=== PATIENT | female | born 1990 | race Caucasian/White ===

== ENCOUNTER 2022-01-10 08:35 | Outpatient (CLI) | payer OTHER, SELFPAY ==
--- NOTE | 2022-01-10 08:30 | ECG_ITS ---
Measurements Intervals [place] Rate: 93 P: 59 NM: 155 QRS: 40 QRSD: 86 T: 43 QT: 345 QTc: 429 Interpretive Statements SINUS RHYTHM MINOR RV CONDUCTION ABNORMALITY OTHERWISE NORMAL ECG NO PREVIOUS ECG AVAILABLE FOR COMPARISON Electronically Signed On 01-10-2022 14:24:09 CDT by Dimas Sawyer M.D.
[2022-01-10 09:28] LABS: Hematocrit 38.7 % (37.0-47.0); Hemoglobin 13.2 g/dL (12.0-15.0)
== END 2022-01-10 08:36 | disposition home or self-care (01) ==
LOC: ANHSURGERY 08:39
PROVIDERS: Anesthesiology; PCP Family Medicine; Visit Provider Surgery Plastic and Reconstructive Surgery
DX: Z41.1 Encounter for cosmetic surgery (principal)
CPT/HCPCS: 36415; 85014; 85018; 93005

== ENCOUNTER 2022-01-13 03:20 | Day surgery (SDC) | payer OTHER, SELFPAY ==
[2022-01-06 12:24] VITALS: BMI 26.6
--- NOTE | 2022-01-06 12:35 | PC.NURSE ---
Report to the Outpatient Waiting Room, entrance under the green pavilion located off [facility], at time 6:00 on date 01/13/22. OR Time: 7:30. - You and your visitor will be asked a series of questions to screen for COVID 19 for your protection. - A mask is required within the hospital. One visitor will be allowed to accompany the patient into the hospital. Patients visitor will be instructed to remain with patient at all times or leave the building. We will allow the visitor to come back to the postoperative area when patient is ready. Preoperative COVID Testing Requirements: No COVID Test needed if: (proof is required; if not received patient will have Rapid Test prior to entry) - Patient has received COVID Vaccine at least 14 days prior to procedure date or - Patient has positive COVID test result within last 90 days of surgery date. COVID Test needed if above criteria is not met Patients may have clear liquids (water, carbonated beverages, clear teas, apple juice) until 3 hours prior to surgery (4:30) with a maximum of 20 ounces. - No food from midnight until time of surgery Take the following medications with a SIP of water the morning of surgery: NONE Medications to discontinue per physician: VITAMINS/SUPPLEMENTS Date to take last dose: 01/09/22 Please no make-up, nail armenian, hairspray, perfume, deodorant, or body powder the day of surgery. No jewelry (including any body piercings) or valuables the day of surgery, leave them at home. Please take a shower or bath the night before, or the morning of, surgery with an antibacterial soap. Wear comfortable, loose fitting clothing. - Jewelry must be removed prior to entering the operating room. Rings and piercings that are not removed may be cut off. - The hospital will not accept responsibility for valuables. - Please leave all valuables, including medications, at home the day of surgery. If you are going home after surgery, a licensed lifter/driver must drive you home. - NO public transportation without another adult. - We recommend that an adult stay with you for 24 hours following discharge. - We also recommend that you do not drive, make important decision, drink alcoholic beverages, or take any drugs that were not prescribed by your health care provider for at least 24 hours after your discharge time. Follow any additional instructions given to you from your surgeon. Telephone instructions given to MARY ARENAS and asked if any additional questions and then verbalized understanding. Patient advised to call surgeon office or pre surgery nurse liaison [phone] if any additional questions.
[2022-01-13] VITALS (14 sets, daily range): BP systolic 95–124; BP diastolic 66–90; PULSE 55–92; RESP 12–16; TEMP 35.5–36.9; O2SAT 96–100
--- NOTE | 2022-01-13 06:29 | P.OP_ITS ---
Procedure Note - Detailed Date of Procedure 01/13/22 Pre-op Diagnosis unacceptable cosmetic appearance Post-op Diagnosis Same Procedure Performed [place] butt lift Surgeon Prince Avelar MD Anesthesia General Findings Total Lipoaspirate: 3000 cc Fat transfer: Right gluteal 550 cc Right lateral thigh 175cc Left gluteal 550 cc Left lateral thigh 175cc Description of Procedure Preoperatively the risks, benefits, alternatives were discussed in extensive d etail. I want her to be very realistic about the risks involved as well as expectations. She understands the technique we are going to utilize and understands there is still risk of associated with this procedure. This was outlined extensively before the procedure as I want her to be well informed. All questions were answered to her satisfaction. Consent obtained. She was marked in the preoperative holding area with her verification. I made sure we are in full agreement on her planned and harvest sites and her goals / volume. Was then taken to operating room placed supine on the operating room table. Anesthesia was provided by anesthesiology. A 360 degree prep was completed. She was draped in a standard sterile fashion. Surgical time-out was taken. Stab incisions were made with an 11 blade and I tumesced with a tumescent solution. I then proceeded with suction lipectomy based on S.A.F.E. technique. This was in multiple planes and passes using a 5 mm basket cannula based on preoperative planning, intraoperative observations, and rolling pinch which was in full agreement. Lipoma aspirate was in a gravity separation device in order for adequate time for separation of the adipose component. We did place in lateral decubitus positions to ensure contour with care taken to protect her during these position changes. Each of the port sites were closed using a 4-0 nylon. I then placed her prone. We re-prepped and draped in a standard sterile fashion. Stab incisions were made in for the remaining lipoaspirate. We waited for adequate time for hemostasis and completed our suction lipectomy as above The central adipose component was used. This was placed into 60 cc syringes which were passed through a luer lock to luer lock adapter. The lipoaspirate tubing and5 mm basket were utilized for fat injection. Care was taken during this to stay superficial following safeBBL principals. Adipose transfer was based on her preoperative planning and tissue compliance / capacity. Port sites were closed with 4-0 nylon. Dressings were placed. She was woken taken to the PACU without difficulty. All instrument sponge counts were correct at the end of the case. Estimated Blood Loss 75 Drains No Packing No Pathology None sent Complications No immediate complications Condition Stable Disposition PACU
[2022-01-13] MEDS: LACTATED RINGERS 1,000 ML 30 ML IV CONT ×2 (06:30→11:19)
[2022-01-13 06:38] LABS: Urine Cotinine NEGATIVE
--- NOTE | 2022-01-13 06:45 | WPDHPUPDATE1 ---
History and Physical Update Update Date/Time: 01/13/22 07:15 History and Physical has been reviewed, including an updated exam of the patient. There are NO changes in the patient's condition. Preoperatively the risks, benefits, alternatives were discussed in extensive detail. I want her to be very realistic about the risks involved as well as expectations. She understands the technique we are going to utilize and understands there is still risk of associated with this procedure. Literature rates were reviewed. This was outlined extensively before the procedure today and at every visit previously as I want her to be well informed of her choice. We discussed DVT prophylaxis options as well and she has elected to used early ambulation after discharge for prophylaxis. All questions were answered to her satisfaction. Consent obtained. Patient agrees to proceed with procedure.
--- NOTE | 2022-01-13 07:19 | P.PNAN_ITS ---
Anes - Initial Pre Proc Eval Procedure: Operation Date: 01/13/22 07:30 Proposed Procedures p [place] Buttock Lift - Prince Avelar MD Date/Time: 01/13/22 07:19 Surgeon: Prince Avelar MD Pre Op Diagnosis: unacceptable cosmetic appearance Patient Data Age: 31 Gender: F Height: 1.7 m Weight: 77.9 kg Last Vital Signs Temp 98.4 F 01/13/22 07:03 Pulse 80 01/13/22 07:03 Resp 16 01/13/22 07:03 BP 108/74 01/13/22 07:03 Pulse Ox 100 01/13/22 07:03 Allergies Allergy/AdvReac Type Severity Reaction Status Date / Time No Known Allergies Allergy Mild Verified 01/13/22 07:02 Home Medications Medication Instructions Recorded Confirmed Type docusate sodium 100 mg capsule 100 mg PO DAILY #14 cap 12/28/21 01/13/22 Rx ondansetron 4 mg disintegrating 4 mg PO Q8H #21 tablet 12/28/21 01/13/22 Rx tablet oxycodone-acetaminophen 5 mg-325 1 tablet PO Q6H PRN #30 tablet 12/29/21 01/13/22 Rx mg tablet melatonin 10 mg PO HS PRN 01/06/22 01/13/22 History Laboratory Tests 01/13/22 06:23 Cotinine Negative Patient hx anesthesia problems: none Family hx anesthesia problems: none Results Review: All pre-operative results and documents have been reviewed as part of the pre-operative evaluation. [facility] Surgical History Surgical History History of cardiac cath Family History Family History Father Diabetes mellitus Social History Social History (Updated 08/17/21 @ 09:53 by Michelle Parker) Years smoked: 2 Smoking status: Former smoker Tobacco type: cigarettes Smoking end date: 10/30/12 Alcohol intake: never Substance use: never Substance use type: does not use Living arrangements: with family Additional living arrangements comments: SON Spiritual care concerns: No Anes - Eval Final PreProcedure Day of Procedure 01/13/22 07:19 Patient weight: normal Heart: regular rate and rhythm Lungs: clear to auscultation Airway: Mallampati scale class II Neurological: alert and oriented Last oral intake: >/= 8 hours ASA classification: II Emergent: no Anesthetic plan: proceed Anesthesia type and monitoring: general ETT and standard monitoring Results Review: All pre-operative results and documents have been reviewed as part of the pre-operative evaluation. Informed Consent: The patient's anesthetic plan and its attendant risks and benefits were discussed with the patient/family/POA. Questions were solicited and answers provided to the satisfaction of the patient/family/POA.
[2022-01-13] MEDS: ceFAZolin 2 GM/D5W 50 ML 2 GM/50 ML BAG IVPB (07:29)
[2022-01-13] MEDS: LACTATED RINGERS IRRIG 1,000 ML, LIDOCAINE HCL 1% LOCAL INJ 50 ML, EPINEPHrine HCL INJ ... INFILTRATE (07:29)
[2022-01-13] MEDS: TRANEXAMIC ACID 1,000MG/ISO100 1,000 MG/100 ML BAG 200 MG IVPB (07:29)
[2022-01-13] MEDS: ONDANSETRON INJ 4 MG/2 ML VIAL IV PUSH (11:35)
[2022-01-13] MEDS: fentaNYL CITRATE INJ (*CRX) 100 MCG/2 ML VIAL 25 MCG IV PUSH ×4 (11:48→12:31)
[2022-01-13] MEDS: diphenhydrAMINE HCl INJ 50 MG/ML VIAL 12.5 MG IV PUSH (12:05)
[2022-01-13] MEDS: SCOPOLAMINE 1.5 MG PATCH TRANSDERM (12:16)
[2022-01-13] MEDS: oxyCODONE HCL (*CRX) 5 MG TAB IR PO (13:47)
== END 2022-01-13 15:05 | disposition home or self-care (01) ==
PROVIDERS: PCP Family Medicine; Visit Provider Surgery Plastic and Reconstructive Surgery
PROC: (CPT 15832; principal; 2022-01-13 07:30)
DX: Z41.1 Encounter for cosmetic surgery (principal); Z87.891 Personal history of nicotine dependence; Z86.79 Personal history of other diseases of the circulatory system
CPT/HCPCS: 15771; 15772 ×28; 80307; A9270; J0171; J0690; J1100; J1170; J1200; J2250; J2405; J2704; J2710; J3010; J7120